=== PATIENT | male | born 1980 | race Two or more races ===

== ENCOUNTER 2020-10-17 19:51 | Emergency (ER) | payer OTHER ==
[~2020-10-17] VITALS: Ht 185.4 cm; Wt 108.9 kg
[2020-10-17 21:01] LABS: Alanine Aminotransferase 56 U/L (16-61); Anion Gap 9 (5-15); Aspartate Aminotransferase 85 U/L (15-37); BUN/Creatinine Ratio 11.6; Blood Urea Nitrogen 10 mg/dL (7-18); Calcium 7.5 mg/dL (8.5-10.1); Carbon Dioxide 18 mmol/L (21-32); Chloride 99 mmol/L (98-107); GFR African American 127 mL/min; GFR Non-African American 105 mL/min; Glucose 101 mg/dL (74-106); INR 0.99 (0.9-1.15); Partial Thromboplastin Time 23.4 sec (23.6-33.0); Potassium 3.6 mmol/L (3.5-5.1); Sodium 126 mmol/L (136-145)
[2020-10-17 21:02] LABS: Albumin 2.9 g/dL (3.4-5.0); Magnesium 2.3 mg/dL (1.6-2.6)
[2020-10-17 21:04] LABS: Alkaline Phosphatase 60 U/L (45-117); Bilirubin, Total 0.6 mg/dL (0.2-1.0); Total Protein 7.1 g/dL (6.4-8.2)
[2020-10-17] MEDS ORDERED: VANCOMYCIN 1GM/250ML 250 ML IV ONE (21:15)
[2020-10-17] MEDS ORDERED: SODIUM CHLORIDE 0.9% 3,250 ML IV ONE (21:15)
[2020-10-17] MEDS ORDERED: PIPERACILLIN-TAZO 4.5GM 100 ML IV ONE (21:15)
[2020-10-17] MEDS ORDERED: ACETAMINOPHEN 325 MG TAB PO ONE (21:30)
[2020-10-17] MEDS ORDERED: IOHEXOL 350 MG/ML 100ML IJ ONE (21:54)
[2020-10-17 22:14] LABS: Basophils # (auto) 0 10 ^3/uL (0-0.2); Basophils % (auto) 0.6 % (0.0-2.0); Eosinophils # (auto) 0 10 ^3/uL (0-0.8); Hematocrit 40.9 % (41.0-53.0); Hemoglobin 14.2 g/dL (13.5-17.5); Lymphocytes # (auto) 0.6 10 ^3/uL (0.4-5.4); Lymphocytes % (auto) 9.4 % (10.0-50.0); Mean Corpuscular Hemoglobin 30.4 pg (28.0-32.0); Mean Corpuscular Hgb Conc. 34.6 g/dL (32.0-36.0); Mean Corpuscular Volume 87.8 fL (80.0-100.0); Monocytes # (auto) 0.4 10 ^3/uL (0-1.3); Monocytes % (auto) 6.1 % (0.0-12.0); Neutrophils # (auto) 5.5 10 ^3/uL (1.6-8.6); Neutrophils % (auto) 83.9 % (37.0-80.0); Nucleated Red Blood Cells % 0.2 %; Red Blood Cells 4.67 10^6/uL (4.5-5.90); Red Cell Distribution Width 12.6 % (11.8-14.3); White Blood Cell 6.6 10^3/uL (4.4-10.8)
[2020-10-18 03:45] LABS: Urine Bacteria NONE SEEN /hpf (None Seen); Urine Blood 1+ /uL (Negative); Urine Specific Gravity 1.026 (1.001-1.035); Urine WBC 2 /hpf (0 - 3)
[2020-10-18 04:57] VITALS: BP 105/54
== END 2020-10-18 05:31 | disposition short-term general hospital (02) ==
LOC: ER 19:51
DX: U07.1 COVID-19 (principal); R19.7 Diarrhea, unspecified
CPT/HCPCS: 36415; 71045; 71275; 80053; 81001; 83605; 83735; 83880; 84484; 85025; 85379; 85610; 85730; 87040; 87426; 93005; 96365; 96366; 96367; 99285; J2543; J3370; Q9967